=== PATIENT | male | born 1980 | race American Indian/Alaskan Native ===

== ENCOUNTER 2019-03-17 10:37 | Emergency (ER) | payer MEDICAID, OTHER ==
[2019-03-17] MEDS ORDERED: Ketorolac 30 MG/ML SDV IVPUSH ONE (10:44)
[2019-03-17] MEDS ORDERED: Sodium Chloride 0.9% 1,000 ML IV ONE ×2 (10:44→11:40)
--- NOTE | 2019-03-17 10:49 | EDM.PDOC ---
ED HPI GENERAL MEDICAL PROBLEM - General Chief Complaint: Chest Pain Stated Complaint: CHEST PAIN Time Seen by Provider: 03/17/19 10:48 Source of Information: Reports: Patient, EMS, RN, RN Notes Reviewed History Limitations: Reports: No Limitations - History of Present Illness INITIAL COMMENTS - FREE TEXT/NARRATIVE: Pt arrives to ER from home by [facility] with c/o fever, sharp severe right sided chest pain, generalized muscle aches. Pt states he felt well until yesterday when he began to feel ill and have chest pain. Pt thought his legs and buttock muscles were just sore from carrying his baby up and down stairs all day. He admits to shortness of breath, mild cough, and profuse sweating. He denies hemoptysis, edema, sore throat, abdominal pain, N/V/D, or urinary symptoms. Pt admits to past drug use, but states that he no longer uses drugs. Onset: Gradual Onset Date: 03/16/19 Duration: Constant, Getting Worse Location: Reports: Chest, Generalized Quality: Reports: Ache Severity: Severe Improves with: Reports: None Worsens with: Reports: None Associated Symptoms: Reports: No Other Symptoms Chest Pain Score (Numeric/FACES): 9 - Related Data Allergies Allergy/AdvReac Type Severity Reaction Status Date / Time No Known Allergies Allergy Verified 03/17/19 11:55 Home Meds: Home Meds . [No Known Home Meds] 03/17/19 [History] Past Medical History Psychiatric History: Reports: Addiction ("pills" (opiates)) Endocrine/Metabolic History: Reports: Diabetes, Type II Social & Family History - Family History Family Medical History: Noncontributory - Tobacco Use Smoking Status *Q: Current Every Day Smoker Tobacco Use Within Last Twelve Months: Cigarettes - Caffeine Use Caffeine Use: Reports: Soda - Alcohol Use Alcohol Use History: Yes Alcohol Use in Last Twelve Months: No - Recreational Drug Use Recreational Drug Use: Yes Recreational Drug Type: Reports: Oxycodone Recreational Drug Use Frequency: Not Used In Over 1 Month - Living Situation & Occupation Living situation: Reports: with Family ED ROS GENERAL - Review of Systems Review Of Systems: Comprehensive ROS is negative, except as noted in HPI. ED EXAM, GENERAL - Physical Exam Exam: See Below Exam Limited By: No Limitations General Appearance: Alert, WD/WN, No Apparent Distress, Other (Acutely ill but non-toxic appearing) Eye Exam: Bilateral Eye: EOMI, Normal Inspection, PERRL Ears: Normal External Exam Nose: Normal Inspection, Normal Mucosa, No Blood Throat/Mouth: Normal Lips, Normal Oropharynx, Normal Voice, No Airway Compromise , Other (Dry oral mucosa) Head: Atraumatic, Normocephalic Neck: Normal Inspection, Supple, Non-Tender, Full Range of Motion. No: Lymphadenopathy (L), Lymphadenopathy (R) Respiratory/Chest: No Respiratory Distress, No Accessory Muscle Use, Decreased Breath Sounds, Wheezing, Other (Coarse breath sounds throughout. Generalized anterior chest wall tenderness.). No: Rales, Rhonchi, Stridor Cardiovascular: Normal Peripheral Pulses, Regular Rate, Rhythm, No Edema, No Murmur, Tachycardia GI/Abdominal: Normal Bowel Sounds, Soft, Non-Tender, No Organomegaly, No Distention, No Abnormal Bruit, No Mass Back Exam: Normal Inspection Extremities: Normal Inspection, Normal Range of Motion, Non-Tender, Normal Capillary Refill, No Pedal Edema Neurological: Alert, Oriented, CN II-XII Intact, Normal Cognition, No Motor/ Sensory Deficits Psychiatric: Normal Affect, Normal Mood Skin Exam: Warm, Intact, Normal Color, No Rash, Diaphoretic. No: Ecchymosis, Jaundice, Pallor, Petechiae EKG INTERPRETATION EKG Date: 03/17/19 Time: 10:49 Rhythm: Other (Sinus Tach) Rate (Beats/Min): 114 [place]: Normal P-Wave: Present QRS: Other (S waves in leads I, II, III, Tall R waves, Tall T waves, no acute ischemic changes.) ST-T: Normal QT: Normal Comparison: NA - No Prior EKG Course - Vital Signs Last Recorded V/S: Last Vital Signs Temp 99.8 F 03/17/19 10:41 Pulse 116 H 03/17/19 10:41 Resp 14 03/17/19 10:41 BP 155/95 H 03/17/19 10:41 Pulse Ox 98 03/17/19 10:41 - Orders/Labs/Meds Orders: Active Orders 24 hr Category Date Time Status EKG 12 Lead [EKG Documentation Completion] [RC] STAT Care 03/17/19 10:43 Active Peripheral IV Care [RC] . DIRECTED Care 03/17/19 10:44 Active Chest w Cont [CT] Stat Exams 03/17/19 11:50 Taken CULTURE BLOOD [] Stat Lab 03/17/19 11:05 Received CULTURE BLOOD [] Stat Lab 03/17/19 11:07 Results CULTURE STREP A CONFIRMATION [] Stat Lab 03/17/19 11:18 Results STREP SCRN A RAPID W CULT CONF [] Stat Lab 03/17/19 11:18 Results Sodium Chloride 0.9% [Normal Saline] 1,000 ml Med 03/17/19 11:40 Active IV .BOLUS Sodium Chloride 0.9% [Saline Flush] Med 03/17/19 10:42 Active 10 ml FLUSH ASDIRECTED PRN Vancomycin 1.25 gm Med 03/17/19 12:30 Ordered Sodium Chloride 0.9% [Normal Saline] 250 ml IV ONETIME Blood Culture x2 Reflex Set [OM.PC] Stat Oth 03/17/19 10:43 Ordered Peripheral IV Insertion Adult [OM.PC] Stat Oth 03/17/19 10:42 Ordered Medication Orders Sodium Chloride (Normal Saline) 1,000 mls @ 999 mls/hr IV .BOLUS ONE Stop: 03/17/19 12:40 Last Admin: 03/17/19 11:51 Dose: 999 mls/hr Vancomycin HCl 1.25 gm/ Sodium (Chloride) 250 mls @ 167 mls/hr IV ONETIME ONE Stop: 03/17/19 13:59 Sodium Chloride (Saline Flush) 10 ml FLUSH ASDIRECTED PRN PRN Reason: Keep Vein Open Last Admin: 03/17/19 11:01 Dose: 10 ml Admin: 03/17/19 10:58 Dose: 10 ml Labs: Laboratory Tests 03/17/19 03/17/19 03/17/19 Range/Units 11:05 11:05 11:05 WBC 20.1 H (5.0-10.0) 10^3/uL RBC 5.23 (4.6-6.2) 10^6/uL Hgb 16.3 (14.0-18.0) g/dL Hct 45.7 (40.0-54.0) % MCV 87.4 (80-100) fL MCH 31.2 (27.0-34.0) pg MCHC 35.7 H (33.0-35.0) g/dL Plt Count 214 (150-450) 10^3/uL Neut % (Auto) 91.5 H (42.2-75.2) % Lymph % (Auto) 3.8 L (20.5-50.1) % [place] % (Auto) 4.7 (2-8) % Eos % (Auto) 0.0 L (1.0-3.0) % Baso % (Auto) 0.0 (0.0-1.0) % D-Dimer, Quantitative 1210 H (0-400) ng/mL Sodium 128 L (135-145) mmol/L Potassium 4.2 (3.6-5.0) mmol/L Chloride 92 L (101-111) mmol/L Carbon Dioxide 26.0 (21.0-31.0) mmol/L Anion Gap 14.2 BUN 11 (7-18) mg/dL Creatinine 0.8 (0.6-1.3) mg/dL Est Cr Clr Drug Dosing 125.20 mL/min Estimated GFR (MDRD) > 60 BUN/Creatinine Ratio 13.75 Glucose 127 H (74-105) mg/dL Lactic Acid (0.5-2.0) mmol/L Calcium 8.7 (8.4-10.2) mg/dl Magnesium 1.7 L (1.8-2.5) mg/dL Total Bilirubin 0.8 (0.2-1.0) mg/dL AST 44 H (10-42) IU/L ALT 36 (10-60) IU/L Alkaline Phosphatase 86 (42-121) IU/L Troponin I < 0.02 (0.00-0.02) ng/ml Total Protein 8.0 (6.7-8.2) g/dl Albumin 4.1 (3.2-5.5) g/dl Globulin 3.9 Albumin/Globulin Ratio 1.05 Amylase 27 L (28-100) U/L Lipase 21 L (22-51) U/L Urine Color (YELLOW) Urine Appearance (CLEAR) Urine pH (5.0-9.0) Ur Specific [place] (1.005-1.030) Urine Protein (NEGATIVE) Urine Glucose (UA) (NEGATIVE) Urine Ketones (NEGATIVE) Urine Occult Blood (NEGATIVE) Urine Nitrite (NEGATIVE) Urine Bilirubin (NEGATIVE) Urine Urobilinogen (0.2-1.0) mg/dL Ur Leukocyte Esterase (NEGATIVE) Urine RBC /HPF Urine WBC (0-5/HPF) /HPF Ur Epithelial Cells (NOT SEEN) /HPF Amorphous Sediment (NOT SEEN) /HPF Urine Bacteria (0-FEW/HPF) /HPF Urine Mucus (NOT SEEN) /LPF Urine Other Urine Opiates Screen (NEGATIVE) Ur Oxycodone Screen (NEGATIVE) Urine Methadone Screen (NEGATIVE) Ur Barbiturates Screen (NEGATIVE) U Tricyclic Antidepress (NEGATIVE) Ur Phencyclidine Scrn (NEGATIVE) Ur Amphetamine Screen (NEGATIVE) U Methamphetamines Scrn (NEGATIVE) Urine MDMA Screen (NEGATIVE) U Benzodiazepines Scrn (NEGATIVE) Urine Cocaine Screen (NEGATIVE) U Marijuana (THC) Screen (NEGATIVE) Ethyl Alcohol < 5 mg/dL Ketones Negative 03/17/19 03/17/19 03/17/19 Range/Units 11:05 12:00 12:00 WBC (5.0-10.0) 10^3/uL RBC (4.6-6.2) 10^6/uL Hgb (14.0-18.0) g/dL Hct (40.0-54.0) % MCV (80-100) fL MCH (27.0-34.0) pg MCHC (33.0-35.0) g/dL Plt Count (150-450) 10^3/uL Neut % (Auto) (42.2-75.2) % Lymph % (Auto) (20.5-50.1) % [place] % (Auto) (2-8) % Eos % (Auto) (1.0-3.0) % Baso % (Auto) (0.0-1.0) % D-Dimer, Quantitative (0-400) ng/mL Sodium (135-145) mmol/L Potassium (3.6-5.0) mmol/L Chloride (101-111) mmol/L Carbon Dioxide (21.0-31.0) mmol/L Anion Gap BUN (7-18) mg/dL Creatinine (0.6-1.3) mg/dL Est Cr Clr Drug Dosing mL/min Estimated GFR (MDRD) BUN/Creatinine Ratio Glucose (74-105) mg/dL Lactic Acid 1.6 (0.5-2.0) mmol/L Calcium (8.4-10.2) mg/dl Magnesium (1.8-2.5) mg/dL Total Bilirubin (0.2-1.0) mg/dL AST (10-42) IU/L ALT (10-60) IU/L Alkaline Phosphatase (42-121) IU/L Troponin I (0.00-0.02) ng/ml Total Protein (6.7-8.2) g/dl Albumin (3.2-5.5) g/dl Globulin Albumin/Globulin Ratio Amylase (28-100) U/L Lipase (22-51) U/L Urine Color Dark yellow (YELLOW) Urine Appearance Slightly cloudy (CLEAR) Urine pH 6.5 (5.0-9.0) Ur Specific [place] 1.020 (1.005-1.030) Urine Protein 30 H (NEGATIVE) Urine Glucose (UA) Negative (NEGATIVE) Urine Ketones Negative (NEGATIVE) Urine Occult Blood Trace-intact H (NEGATIVE) Urine Nitrite Negative (NEGATIVE) Urine Bilirubin Negative (NEGATIVE) Urine Urobilinogen 4.0 H (0.2-1.0) mg/dL Ur Leukocyte Esterase Negative (NEGATIVE) Urine RBC 5-10 H /HPF Urine WBC 0-5 (0-5/HPF) /HPF Ur Epithelial Cells Rare (NOT SEEN) /HPF Amorphous Sediment Rare (NOT SEEN) /HPF Urine Bacteria Rare (0-FEW/HPF) /HPF Urine Mucus Few H (NOT SEEN) /LPF Urine Other See note Urine Opiates Screen Negative (NEGATIVE) Ur Oxycodone Screen Positive H (NEGATIVE) Urine Methadone Screen Negative (NEGATIVE) Ur Barbiturates Screen Negative (NEGATIVE) U Tricyclic Antidepress Negative (NEGATIVE) Ur Phencyclidine Scrn Negative (NEGATIVE) Ur Amphetamine Screen Positive H (NEGATIVE) U Methamphetamines Scrn Positive H (NEGATIVE) Urine MDMA Screen Negative (NEGATIVE) U Benzodiazepines Scrn Negative (NEGATIVE) Urine Cocaine Screen Negative (NEGATIVE) U Marijuana (THC) Screen Positive H (NEGATIVE) Ethyl Alcohol mg/dL Ketones Meds: Medications Generic Name Dose Route Start Last Admin Trade Name Freq PRN Reason Stop Dose Admin Sodium Chloride 1,000 mls @ 999 mls/hr 03/17/19 11:40 03/17/19 11:51 Normal Saline IV 03/17/19 12:40 999 mls/hr .BOLUS ONE Administration Vancomycin HCl 1.25 gm/ Sodium 250 mls @ 167 mls/hr 03/17/19 12:30 Chloride IV 03/17/19 13:59 ONETIME ONE Sodium Chloride 10 ml 03/17/19 10:42 03/17/19 11:01 Saline Flush FLUSH 10 ml ASDIRECTED PRN Administration Keep Vein Open Discontinued Medications Generic Name Dose Route Start Last Admin Trade Name Freq PRN Reason Stop Dose Admin Hydromorphone HCl 0.5 mg 03/17/19 11:55 03/17/19 12:01 Dilaudid IVPUSH 03/17/19 11:56 0.5 mg ONETIME ONE Administration Sodium Chloride 1,000 mls @ 999 mls/hr 03/17/19 10:44 03/17/19 10:59 Normal Saline IV 03/17/19 11:44 999 mls/hr .BOLUS ONE Administration Azithromycin 500 mg/ Sodium 250 mls @ 250 mls/hr 03/17/19 11:33 03/17/19 12: 36 Chloride IV 03/17/19 12:32 250 mls/hr ONETIME ONE Administration Ceftriaxone Sodium 2 gm/ 100 mls @ 200 mls/hr 03/17/19 11:45 03/17/19 11:50 Sodium Chloride IV 03/17/19 12:14 200 mls/hr ONETIME ONE Administration Iopamidol 100 ml 03/17/19 11:49 03/17/19 12:22 Isovue-370 (76%) IVPUSH 03/17/19 11:50 64 ml ONETIME ONE Administration Ketorolac Tromethamine 30 mg 03/17/19 10:44 03/17/19 11:00 Toradol IVPUSH 03/17/19 10:45 30 mg ONETIME ONE Administration - Radiology Interpretation Free Text/Narrative:: XR Chest: Bronchial inflammation, small nodule RUL, no sign of heart failure or lobar pneumonia per radiologist's report. CT Chest: multiple septic pulmonary emboli per Rad. report. Departure - Departure Time of Disposition: 12:34 Disposition: DC/Tfer to [facility] 02 Reason for Transfer *Q: Primary PCI Indicated Condition: Serious, Critical Clinical Impression: Acute septic pulmonary embolism Qualifiers: Acute cor pulmonale presence: without acute cor pulmonale Qualified Code(s): I26.90 - Septic pulmonary embolism without acute cor pulmonale Sepsis Qualifiers: Sepsis type: sepsis due to unspecified organism Sepsis acute organ dysfunction status: without acute organ dysfunction Qualified Code(s): A41.9 - Sepsis, unspecified organism Forms: ED Department Discharge, [facility] Note - Evaluation Sepsis Screening Result: No Definite Risk - Focused Exam Vital Signs: Vital Signs Temp Pulse Resp BP Pulse Ox 03/17/19 10:41 99.8 F 116 H 14 155/95 H 98 Date Exam was Performed: 03/17/19 Time Exam was Performed: 12:37 - My Orders Last 24 Hours: My Active Orders 03/17/19 10:42 Sodium Chloride 0.9% [Saline Flush] 10 ml FLUSH ASDIRECTED PRN Peripheral IV Insertion Adult [OM.PC] Stat 03/17/19 10:43 EKG 12 Lead [EKG Documentation Completion] [RC] STAT Blood Culture x2 Reflex Set [OM.PC] Stat 03/17/19 10:44 Peripheral IV Care [RC] . DIRECTED 03/17/19 11:05 CULTURE BLOOD [BC] Stat 03/17/19 11:07 CULTURE BLOOD [BC] Stat 03/17/19 11:18 CULTURE STREP A CONFIRMATION [RM] Stat STREP SCRN A RAPID W CULT CONF [RM] Stat 03/17/19 11:40 Sodium Chloride 0.9% [Normal Saline] 1,000 ml IV .BOLUS 03/17/19 11:50 Chest w Cont [CT] Stat 03/17/19 12:30 Vancomycin 1.25 gm Sodium Chloride 0.9% [Normal Saline] 250 ml IV ONETIME - Assessment/Plan Last 24 Hours: My Active Orders 03/17/19 10:42 Sodium Chloride 0.9% [Saline Flush] 10 ml FLUSH ASDIRECTED PRN Peripheral IV Insertion Adult [OM.PC] Stat 03/17/19 10:43 EKG 12 Lead [EKG Documentation Completion] [RC] STAT Blood Culture x2 Reflex Set [OM.PC] Stat 03/17/19 10:44 Peripheral IV Care [RC] . DIRECTED 03/17/19 11:05 CULTURE BLOOD [BC] Stat 03/17/19 11:07 CULTURE BLOOD [BC] Stat 03/17/19 11:18 CULTURE STREP A CONFIRMATION [RM] Stat STREP SCRN A RAPID W CULT CONF [RM] Stat 03/17/19 11:40 Sodium Chloride 0.9% [Normal Saline] 1,000 ml IV .BOLUS 03/17/19 11:50 Chest w Cont [CT] Stat 03/17/19 12:30 Vancomycin 1.25 gm Sodium Chloride 0.9% [Normal Saline] 250 ml IV ONETIME
[2019-03-17] MEDS: Sodium Chloride 0.9% 10 ML Syringe FLUSH PRN ×2 (10:58→11:01)
--- NOTE | 2019-03-17 11:26 | CR ---
EXAMINATION: Chest 2V SEX: Male AGE: 38 years CLINICAL HISTORY: 38-year-old male complaining of chest pain, wheezing, and fever. INTERPRETATION: 1. Coarse accentuation perihilar lung markings and mild peribronchial "cuffing" consistent with reactive airway disease i.e. bronchitis. 2. Ill-defined nodular density identified upper right chest "framed" by the third and fourth ribs on the right, anteriorly. 3. No other lung nodule or mass lesion and no signs of hilar/mediastinal lymphadenopathy. 4. No lobar pneumonia, atelectasis or collapse. 5. Pardeep thorax unremarkable. (External field service consultant leads) 6. Normal cardiac silhouette without cephalization of vascular flow, vascular congestion, alveolar edema or dependent effusion. CONCLUSION: Bronchial inflammation. Small nodule RUL. No sign of heart failure or lobar pneumonia.
[2019-03-17] MEDS ORDERED: Azithromycin 500 MG in Sodium Chloride 0.9% 250 ML IV ONE (11:33)
[2019-03-17 11:36] LABS: ANION GAP 14.2; CHLORIDE,CL 92 mmol/L (101-111); SODIUM,NA 128 mmol/L (135-145)
[2019-03-17] MEDS ORDERED: cefTRIAXone 2 GM in Sodium Chloride 0.9% 100 ML IV ONE (11:45)
[2019-03-17] MEDS ORDERED: Iopamidol 755 Mg/ML 100 ML Bottle IVPUSH ONE (11:49)
[2019-03-17] MEDS ORDERED: HYDROmorphone 1 MG/ML Syringe IVPUSH ONE (11:55)
--- NOTE | 2019-03-17 12:46 | CT ---
EXAMINATION: Chest w Cont SEX: Male AGE: 38 years CLINICAL HISTORY: 38-year-old diaphoretic 180 pound male with chest pain, fever, tachycardia, abnl. EKG, D-dimer >1200, WBC 20,000, and abnormal drug screen that "lites up like a [place] tree". Rule out pulmonary embolism. Scan technique: Volume acquisition of data from the chest (bony thorax, lungs and mediastinum) obtained during intravenous ministration 64 cc nonionic Isovue 370 at 4.9 mm/s patient was lying supine on the Siemens multislice scanner [facility]. All data archived in the PACS system for storage, reformatting axial/sagittal/coronal planes and study. INTERPRETATION: Abnormal. 1. Several round peripheral, pleural-based nodular densities identified in both lung morales (largest RUL measuring 12 mm diameter). No associated dependent pleural effusions. 2. No intraluminal filling defect or thrombus identified in the main pulmonary artery circulation proximally. 3. No larger lung mass or significant hilar/mediastinal lymphadenopathy. 4. Centrilobular cystic emphysematous lesions, particularly on the right. 5. No infiltrate, atelectasis or collapse. 6. Normal cardiac silhouette and normal caliber thoracic aorta. No pulmonary vascular congestion, edema or effusions. 7. Mild marginal spondylosis. Bony thorax otherwise unremarkable. Upper abdominal viscera negative. CONCLUSION: Probable septic pulmonary emboli. Close clinical correlation please. No sign of heart failure, primary lung malignancy or pneumonia.
== END 2019-03-17 13:30 ==
LOC: DL.ED 10:37
DX: I26.90 Septic pulmonary embolism without acute cor pulmonale (principal)
CPT/HCPCS: 36415; 71046; 71260; 80053; 80305; 80320; 81001; 82009; 82150; 83605; 83690; 83735; 84484; 85025; 85379; 87040; 87081; 87430; 87804; 93005; J0456; J0696; J1170; J1885; J3370; J7030; J7050; Q9967; 87077; 87186; G0480

== ENCOUNTER 2019-03-21 11:57 | Emergency (ER) | payer MEDICAID, OTHER ==
[2019-03-21] MEDS ORDERED: Sodium Chloride 0.9% 1,000 ML IV SCH (12:45)
[2019-03-21 12:49] LABS: CHLORIDE,CL 91 mmol/L (101-111); SODIUM,NA 128 mmol/L (135-145)
[2019-03-21] MEDS ORDERED: Morphine 2 MG/ML Syringe IVPUSH ONE (12:57)
[2019-03-21] MEDS ORDERED: TELAVANCIN HCL IV ONE (13:00)
[2019-03-21] MEDS ORDERED: SODIUM CHLORIDE 0.9% IV ONE (13:00)
--- NOTE | 2019-03-21 13:32 | EDM.PDOC ---
ED HPI GENERAL MEDICAL PROBLEM - General Chief Complaint: Chest Pain Stated Complaint: CHEST PAIN Time Seen by Provider: 03/21/19 12:28 Source of Information: Reports: Patient, RN - History of Present Illness INITIAL COMMENTS - FREE TEXT/NARRATIVE: 38-year-old male who presents to the ER with complaints of chest pain. The patient was discharged from the hospital one day ago after being treated for a septic emboli. Patient reports pain is a 9 on a 10 and sharp and nonradiating on the left side of his chest. States pain is the same as when he was discharged from the hospital. He is complaining of shortness of breath and CP when taking to deep breaths. He denies any leg swelling. Patient was in the clinic for his outpatient antibiotic when he started complaining of chest pain. He was transferred to the ER for an evaluation. In the ER appreciated and was noted to be tachycardic, low grade fever and hypoxic at 83 % on RA.. He was also noticed to be diaphoretic. Chest pain protocol initiated. Patient denied IV drug use but admits to smoking marijuana. Chest Pain Score (Numeric/FACES): 9 - Related Data Allergies Allergy/AdvReac Type Severity Reaction Status Date / Time No Known Allergies Allergy Verified 03/17/19 11:55 Home Meds: Home Meds Telavancin HCl [Vibativ] 750 mg IV DAILY 03/21/19 [History] oxyCODONE 5 mg PO 6X03/21/19 [History] Past Medical History HEENT History: Reports: None Cardiovascular History: Reports: None Respiratory History: Reports: None Gastrointestinal History: Reports: None Genitourinary History: Reports: None Musculoskeletal History: Reports: None Neurological History: Reports: None Psychiatric History: Reports: Addiction Endocrine/Metabolic History: Reports: Diabetes, Type II Hematologic History: Reports: None Immunologic History: Reports: None Oncologic (Cancer) History: Reports: None Dermatologic History: Reports: None - Infectious Disease History Infectious Disease History: Reports: None - Past Surgical History Head Surgeries/Procedures: Reports: None Social & Family History - Family History Family Medical History: Noncontributory - Tobacco Use Smoking Status *Q: Current Every Day Smoker Years of Tobacco use: 15 Packs/Tins Daily: 1 - Caffeine Use Caffeine Use: Reports: Coffee, Energy Drinks, Soda - Recreational Drug Use Recreational Drug Use: Yes Recreational Drug Type: Reports: Marijuana/Hashish, Methamphetamine - Living Situation & Occupation Living situation: Reports: with Family ED ROS GENERAL - Review of Systems Review Of Systems: Comprehensive ROS is negative, except as noted in HPI. ED EXAM, GENERAL - Physical Exam Exam: See Below Exam Limited By: Respiratory Distress General Appearance: Alert, Anxious, Severe Distress Eye Exam: Left Eye: EOMI, PERRL Ears: Normal External Exam, Normal Canal, Hearing Grossly Normal, Normal TMs Nose: Normal Inspection, Normal Mucosa, No Blood Throat/Mouth: Normal Inspection, Normal Lips, Normal Teeth, Normal Gums, Normal Oropharynx, Normal Voice, No Airway Compromise Head: Atraumatic, Normocephalic Neck: Normal Inspection, Supple, Non-Tender, Full Range of Motion Respiratory/Chest: Lungs Clear, Normal Breath Sounds, No Accessory Muscle Use, Chest Non-Tender Cardiovascular: Normal Peripheral Pulses, Regular Rate, Rhythm, No Edema GI/Abdominal: Normal Bowel Sounds, Soft, Non-Tender, No Organomegaly, No Distention Rectal (Males) Exam: Normal Exam Extremities: Normal Inspection, Normal Range of Motion, Non-Tender, No Pedal Edema, Normal Capillary Refill Course - Vital Signs Last Recorded V/S: Last Vital Signs Temp 99.5 F 03/21/19 12:13 Pulse 122 H 03/21/19 12:13 Resp 24 H 03/21/19 12:13 BP 141/100 H 03/21/19 12:13 Pulse Ox 83 L 03/21/19 12:13 - Orders/Labs/Meds Orders: Active Orders 24 hr Category Date Time Status EKG 12 Lead [EKG Documentation Completion] [RC] STAT Care 03/21/19 12:11 Active CULTURE BLOOD [BC] Stat Lab 03/21/19 12:09 Received CULTURE BLOOD [BC] Stat Lab 03/21/19 12:18 Received Blood Culture x2 Reflex Set [OM.PC] Stat Oth 03/21/19 12:12 Ordered Labs: Laboratory Tests 03/21/19 03/21/19 03/21/19 Range/Units 12:09 12:09 12:09 WBC 14.7 H (5.0-10.0) 10^3/uL RBC 4.54 L (4.6-6.2) 10^6/uL Hgb 13.9 L D (14.0-18.0) g/dL Hct 40.1 (40.0-54.0) % MCV 88.3 (80-100) fL MCH 30.6 (27.0-34.0) pg MCHC 34.7 (33.0-35.0) g/dL Plt Count 378 D (150-450) 10^3/uL Neut % (Auto) 80.9 H (42.2-75.2) % Lymph % (Auto) 8.8 L (20.5-50.1) % [place] % (Auto) 9.7 H (2-8) % Eos % (Auto) 0.5 L (1.0-3.0) % Baso % (Auto) 0.1 (0.0-1.0) % Sodium 128 L (135-145) mmol/L Potassium 4.0 (3.6-5.0) mmol/L Chloride 91 L (101-111) mmol/L Carbon Dioxide 25.0 (21.0-31.0) mmol/L Anion Gap 16.0 BUN 10 (7-18) mg/dL Creatinine 0.7 (0.6-1.3) mg/dL Est Cr Clr Drug Dosing 138.43 mL/min Estimated GFR (MDRD) > 60 BUN/Creatinine Ratio 14.28 Glucose 122 H (74-105) mg/dL Lactic Acid 0.8 (0.5-2.0) mmol/L Calcium 8.3 L (8.4-10.2) mg/dl Total Bilirubin 0.9 (0.2-1.0) mg/dL AST 13 (10-42) IU/L ALT 21 (10-60) IU/L Alkaline Phosphatase 109 (42-121) IU/L Troponin I < 0.02 (0.00-0.02) ng/ml Total Protein 7.2 (6.7-8.2) g/dl Albumin 3.1 L (3.2-5.5) g/dl Globulin 4.1 Albumin/Globulin Ratio 0.76 Urine Color (YELLOW) Urine Appearance (CLEAR) Urine pH (5.0-9.0) Ur Specific [place] (1.005-1.030) Urine Protein (NEGATIVE) Urine Glucose (UA) (NEGATIVE) Urine Ketones (NEGATIVE) Urine Occult Blood (NEGATIVE) Urine Nitrite (NEGATIVE) Urine Bilirubin (NEGATIVE) Urine Urobilinogen (0.2-1.0) mg/dL Ur Leukocyte Esterase (NEGATIVE) Urine RBC /HPF Urine WBC (0-5/HPF) /HPF Ur Epithelial Cells (NOT SEEN) /HPF Urine Bacteria (0-FEW/HPF) /HPF Urine Mucus (NOT SEEN) /LPF Urine Opiates Screen (NEGATIVE) Ur Oxycodone Screen (NEGATIVE) Urine Methadone Screen (NEGATIVE) Ur Barbiturates Screen (NEGATIVE) U Tricyclic Antidepress (NEGATIVE) Ur Phencyclidine Scrn (NEGATIVE) Ur Amphetamine Screen (NEGATIVE) U Methamphetamines Scrn (NEGATIVE) Urine MDMA Screen (NEGATIVE) U Benzodiazepines Scrn (NEGATIVE) Urine Cocaine Screen (NEGATIVE) U Marijuana (THC) Screen (NEGATIVE) 03/21/19 03/21/19 Range/Units 13:00 13:00 WBC (5.0-10.0) 10^3/uL RBC (4.6-6.2) 10^6/uL Hgb (14.0-18.0) g/dL Hct (40.0-54.0) % MCV (80-100) fL MCH (27.0-34.0) pg MCHC (33.0-35.0) g/dL Plt Count (150-450) 10^3/uL Neut % (Auto) (42.2-75.2) % Lymph % (Auto) (20.5-50.1) % [place] % (Auto) (2-8) % Eos % (Auto) (1.0-3.0) % Baso % (Auto) (0.0-1.0) % Sodium (135-145) mmol/L Potassium (3.6-5.0) mmol/L Chloride (101-111) mmol/L Carbon Dioxide (21.0-31.0) mmol/L Anion Gap BUN (7-18) mg/dL Creatinine (0.6-1.3) mg/dL Est Cr Clr Drug Dosing mL/min Estimated GFR (MDRD) BUN/Creatinine Ratio Glucose (74-105) mg/dL Lactic Acid (0.5-2.0) mmol/L Calcium (8.4-10.2) mg/dl Total Bilirubin (0.2-1.0) mg/dL AST (10-42) IU/L ALT (10-60) IU/L Alkaline Phosphatase (42-121) IU/L Troponin I (0.00-0.02) ng/ml Total Protein (6.7-8.2) g/dl Albumin (3.2-5.5) g/dl Globulin Albumin/Globulin Ratio Urine Color Yellow (YELLOW) Urine Appearance Clear (CLEAR) Urine pH 6.5 (5.0-9.0) Ur Specific [place] 1.010 (1.005-1.030) Urine Protein Trace H (NEGATIVE) Urine Glucose (UA) Negative (NEGATIVE) Urine Ketones Negative (NEGATIVE) Urine Occult Blood Trace-intact H (NEGATIVE) Urine Nitrite Negative (NEGATIVE) Urine Bilirubin Negative (NEGATIVE) Urine Urobilinogen 1.0 (0.2-1.0) mg/dL Ur Leukocyte Esterase Negative (NEGATIVE) Urine RBC 0-5 /HPF Urine WBC Not seen (0-5/HPF) /HPF Ur Epithelial Cells Rare (NOT SEEN) /HPF Urine Bacteria Not seen (0-FEW/HPF) /HPF Urine Mucus Not seen (NOT SEEN) /LPF Urine Opiates Screen Negative (NEGATIVE) Ur Oxycodone Screen Positive H (NEGATIVE) Urine Methadone Screen Negative (NEGATIVE) Ur Barbiturates Screen Negative (NEGATIVE) U Tricyclic Antidepress Negative (NEGATIVE) Ur Phencyclidine Scrn Negative (NEGATIVE) Ur Amphetamine Screen Negative (NEGATIVE) U Methamphetamines Scrn Negative (NEGATIVE) Urine MDMA Screen Negative (NEGATIVE) U Benzodiazepines Scrn Negative (NEGATIVE) Urine Cocaine Screen Negative (NEGATIVE) U Marijuana (THC) Screen Negative (NEGATIVE) Meds: Medications Discontinued Medications Generic Name Dose Route Start Last Admin Trade Name Freq PRN Reason Stop Dose Admin Sodium Chloride 1,000 mls @ 999 mls/hr 03/21/19 12:45 03/21/19 12:48 Normal Saline IV 999 mls/hr ASDIRECTED JOSE G Administration Telavancin 750 mg/ Sodium 250 mls @ 250 mls/hr 03/21/19 13:00 03/21/19 13:06 Chloride IV 03/21/19 13:59 250 mls/hr ONETIME ONE Administration Morphine Sulfate 2 mg 03/21/19 12:57 03/21/19 13:04 Morphine IVPUSH 03/21/19 12:58 2 mg ONETIME ONE Administration - Re-Assessments/Exams Free Text/Narrative Re-Assessment/Exam: 38-year-old male who presents to the ER one day post treatment of a septic emboli. EKG shows showed sinus tach. Labs, chest xray and UDS with results pending. Dr. Betancourt present during patient evaluation and encourage immediate transfer as patient is critical. Discussed patient care with Dr. Brown who accepted patient for transfer. Review this plan with patient and he was in agreement to transfer. Normal saline IV bolus with Telavancin initiated. Patient transfer to [facility] by ambulance and Airmed Departure - Departure Time of Disposition: 12:55 Disposition: DC/Tfer to [facility] 02 Reason for Transfer *Q: Other (Sepsis) Condition: Critical Clinical Impression: Septic embolism Referrals: PCP,Unobtain [Primary Care Provider] - Forms: ED Department Discharge, Interfacility Transfer MANOJ Sepsis Event Note - Evaluation Sepsis Screening Result: Possible Sepsis Risk - Focused Exam Vital Signs: Vital Signs Temp Pulse Resp BP Pulse Ox 03/21/19 12:13 99.5 F 122 H 24 H 141/100 H 83 L Date Exam was Performed: 03/21/19 Time Exam was Performed: 16:40 - My Orders Last 24 Hours: My Active Orders 03/21/19 12:09 CULTURE BLOOD [BC] Stat 03/21/19 12:11 EKG 12 Lead [EKG Documentation Completion] [RC] STAT 03/21/19 12:12 Blood Culture x2 Reflex Set [OM.PC] Stat 03/21/19 12:18 CULTURE BLOOD [BC] Stat - Assessment/Plan Last 24 Hours: My Active Orders 03/21/19 12:09 CULTURE BLOOD [BC] Stat 03/21/19 12:11 EKG 12 Lead [EKG Documentation Completion] [RC] STAT 03/21/19 12:12 Blood Culture x2 Reflex Set [OM.PC] Stat 03/21/19 12:18 CULTURE BLOOD [BC] Stat
--- NOTE | 2019-03-21 14:53 | CR ---
EXAMINATION: Chest 1V Frontal SEX: Male AGE: 38 years CLINICAL HISTORY: 38-year-old male diagnosed (CT exam 17 March) probable "septic pulmonary emboli". Now CHEST PAIN. INTERPRETATION: Upright AP portable chest film Bibasilar, large dependent subpulmonic PLEURAL EFFUSIONS with some underlying nodular infiltrates suggested in both mid lung morales. Cardiac silhouette generally unchanged considering differences in technique. No cephalization of vascular flow or alveolar edema in the upper lobes. No pneumothorax or pneumomediastinum. CONCLUSION: Markedly abnormal and decidedly deteriorated radiographically since 17 March 2019 film (4 days ago)
== END 2019-03-21 13:37 ==
LOC: DL.ED 11:57
DX: I76 Septic arterial embolism (principal); E11.9 Type 2 diabetes mellitus without complications; F17.210 Nicotine dependence, cigarettes, uncomplicated; Z79.899 Other long term (current) drug therapy
CPT/HCPCS: 36415; 71045; 80053; 80305; 81001; 83605; 84484; 85025; 87040; 93005; 96365; 96375; 99285; J2270; J3095; J7030; J7050

== ENCOUNTER 2019-03-28 09:53 | Inpatient (IN) | payer MEDICAID, OTHER ==
[2019-03-28] MEDS ORDERED: Docusate Sodium 100 MG Cap PO PRN (14:01)
[2019-03-28] MEDS ORDERED: Acetaminophen 325 MG Tab PO PRN (14:06)
--- NOTE | 2019-03-28 14:43 | HP ---
HISTORY OF PRESENT ILLNESS: The patient is a 38-year-old male with infective endocarditis and septic emboli, who was discharged from [facility] and admitted here to swing bed for continued IV antibiotic. The patient was admitted to [facility] about 1-1/2 weeks ago because of infective endocarditis and subsequently discharged and continued on IV vancomycin and the patient again presented with increasing shortness of breath, and the patient had a CAT scan of the chest which showed septic emboli with bilateral pleural effusion. He had a chest tube put in while in [facility], and this has been removed. The patient currently is still complaining of some chest discomfort with breathing, but he denies any fever or chills, orthopnea, PND, abdominal pain, nor any other complaints. 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 SOCIAL HISTORY: The patient is a smoker. Drinks alcohol occasionally and has history of IV drug use. REVIEW OF SYSTEMS: As in HPI. The rest of the review of systems is negative. CURRENT MEDICATIONS: Oxycodone, nicotine patch, vitamin B complex, melatonin, Tylenol, and vancomycin 1.2 g IV q.8 hours. ALLERGIES: No known drug allergies. PHYSICAL EXAMINATION: General: The patient is alert and oriented, not in any acute distress. Vital Signs: Blood pressure is 139/88, pulse of 101, respirations 18, temperature of 97.6, saturation is 98% on room air. HEENT: Normocephalic. There are pink palpebral conjunctivae. Sclerae anicteric. No JVD. No lymphadenopathy. Heart: Regular rate and rhythm. No rubs. Lungs: Equal bilaterally with diminished breath sounds on both bases, but no significant crackles, no wheezing. Abdomen: Soft and nontender. Bowel sounds positive. Extremities: Negative for any pedal edema. No calf tenderness. 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 PLAN: We will continue with vancomycin as instructed by Infectious Disease, and he is also being followed by Infectious Disease. We will continue with his home medication. The patient is a full code. [facility] /[id number]
[2019-03-28] MEDS: oxyCODONE 5 MG Tab PO PRN ×3 (15:04→23:42)
[2019-03-28] MEDS: Melatonin 3 MG Tab PO PRN (19:51)
[2019-03-29] MEDS: oxyCODONE 5 MG Tab PO PRN ×5 (04:27→20:53)
[2019-03-29 06:42] LABS: ANION GAP 13.6; CHLORIDE,CL 100 mmol/L (101-111); SODIUM,NA 135 mmol/L (135-145)
[2019-03-29] MEDS: Nicotine 7 MG/24 Hr Patch TOP SCH (08:39)
[2019-03-29] MEDS: Vitamin B Complex Cap PO SCH (08:39)
[2019-03-29] MEDS: Melatonin 3 MG Tab PO PRN (20:54)
[2019-03-30] MEDS: oxyCODONE 5 MG Tab PO PRN ×5 (01:37→21:57)
[2019-03-30] MEDS: Nicotine 7 MG/24 Hr Patch TOP SCH (08:11)
[2019-03-30] MEDS: Vitamin B Complex Cap PO SCH (08:11)
[2019-03-30] MEDS ORDERED: Sodium Chloride 0.9% 10 ML Syringe FLUSH PRN (21:59)
[2019-03-30] MEDS ORDERED: LORazepam 1 MG Tab PO ONE (22:02)
[2019-03-31] MEDS: Melatonin 3 MG Tab PO PRN (01:47)
[2019-03-31] MEDS: oxyCODONE 5 MG Tab PO PRN ×4 (01:47→15:41)
[2019-03-31] MEDS: Vitamin B Complex Cap PO SCH (09:25)
[2019-03-31] MEDS: Nicotine 7 MG/24 Hr Patch TOP SCH (09:25)
--- NOTE | 2019-03-31 11:21 | DISCH ---
FINAL DIAGNOSES: 1. Methicillin-resistant Staphylococcus aureus. 2. Tricuspid valve endocarditis with septic emboli to the lungs. BRIEF HISTORY OF PRESENT ILLNESS: Please see H and P. PERTINENT LABS, X-RAY AND OTHER TESTS: See H and P. HOSPITAL COURSE: The patient was continued on IV vancomycin as per instruction of Infectious Disease. Hospital course was complicated by anxiety, and because of this, the patient was going to sign out AMA because he would like to just have his IV antibiotics to be given as an outpatient, but after having a talk with the patient and promising him not to sign out AMA and instead just being discharged to come back for his IV antibiotics. The patient will be discharged home, but he will continue with his IV antibiotics as instructed by ID as an outpatient, and he is going to keep his followup appointment with ID as scheduled. [facility] /[id number]
--- NOTE | 2019-03-31 12:00 | PN ---
DATE: 03/31/2019 SUBJECTIVE: The patient last night was complaining of right-sided back/chest pain. We did chest x-ray and basically chest x-ray did not show any significant changes. I rechecked his CBC, WBC was just slightly elevated to 13.6 from 12. On examination, it was compatible with more of musculoskeletal pain. The patient was very anxious after his daughter left his room and did not stay with him. This morning, the patient is feeling much better, but he is requesting to be discharged, and he would just do his IV antibiotics as an outpatient when coming back here. The patient denies any fever, chills, chest pain, shortness of breath, abdominal pain, or any other complaints. OBJECTIVE: Vital Signs: Blood pressure is 126/68, pulse of 97, respirations 16, temperature of 97.9, saturation is 96% on room air. Heart: Regular rate and rhythm. Normal S1 and S2. No gallops. No rubs. Lungs: Have diminished breath sounds on both bases, but no crackles, no wheezing. Breath sounds equal. Abdomen: Soft, nontender. Bowel sounds positive. Extremities: Negative for any pedal edema. No calf tenderness. PLAN: We will continue with his present management. We will also discuss with the staff regarding patient being discharged and receiving his IV antibiotics as an outpatient because of the patient's history of drug abuse. [facility] /[id number]
== END 2019-03-31 16:23 | disposition home or self-care (01) | DRG 307 ==
LOC: UNDOADMIN 11:55 → DL.MS 11:55
PROVIDERS: ADMIT Internal Medicine; ATTEND Internal Medicine
DX: I07.9 Rheumatic tricuspid valve disease, unspecified (principal); I76 Septic arterial embolism; B95.62 Methicillin resistant Staphylococcus aureus infection as the cause of diseases classified elsewhere; Z28.82 Immunization not carried out because of caregiver refusal
CPT/HCPCS: 36415; 71046; 80048; 80202; 85025; A9270-GY; J3370; J7050